=== PATIENT | female | born 1980 | race Caucasian/White ===

== ENCOUNTER 2016-12-21 06:56 | Day surgery (SDC) | payer OTHER ==
[2016-12-21] MEDS ORDERED: SILVER NITRATE APPLICATOR 1 APPL TP ONE (07:05)
[2016-12-21] MEDS ORDERED: LIDOCAINE 2% 5 ML SDV ONE (07:13)
[2016-12-21] MEDS ORDERED: MIDAZOLAM 2 MG/2 ML VIAL ONE (07:36)
[2016-12-21] MEDS ORDERED: PROPOFOL/EMULSION 500 MG/50 ML BOTTLE IV ONE (07:40)
[2016-12-21] MEDS ORDERED: fentaNYL 100 MCG/2 ML INJ ONE (07:40)
[2016-12-21] MEDS ORDERED: DEXAMETHASONE 4 MG/ML VIAL ONE (07:42)
[2016-12-21] MEDS ORDERED: LIDOCAINE 2% JELLY 5 ML TUBE ONE (07:42)
[2016-12-21] MEDS ORDERED: ONDANSETRON 4 MG/2 ML VIAL ONE (07:42)
[2016-12-21] MEDS ORDERED: LIDOCAINE 2% 100 MG/5 ML SYR ONE (07:42)
[2016-12-21] MEDS ORDERED: KETOROLAC 30 MG/1 ML SDV ONE (07:49)
[2016-12-21] MEDS ORDERED: PROPOFOL 200 MG/20 ML VIAL ONE (08:25)
--- NOTE | 2016-12-21 09:37 | GOP ---
[f rep st] OPERATIVE REPORT DATE OF OPERATION: 12/21/2016 SURGEON: Angeles Daily MD ANESTHESIA: Duran Davis MD. PREOPERATIVE DIAGNOSIS: Uterine polyps, infertility with premature ovarian failure. POSTOPERATIVE DIAGNOSIS: Uterine adhesion. PROCEDURE PERFORMED: Diagnostic hysteroscopy, polypectomy. FINDINGS: One small endocervical polyp, 1 larger polyp in the lower uterine segment on the left, and a large anterior/posterior pillar of dense scar tissue with in the uterine fundus occupying the middle third of the uterine cavity. SPECIMENS: Endometrial polyp. ESTIMATED BLOOD LOSS: Less than 10 mL. INDICATIONS: Patient is a 36 yo G0 who is planning to undergo assisted reproductive fertility services for infertility. She has a known history of uterine polyps and had a prior hysteroscopy and polypectomy in [place] in 2013. Prior to her fertility treatment a diagnostic hysteroscopy in her provider's office demonstrated uterine polyps. It was recommended she proceed with operative hysteroscopy for polyp removal. All risks and benefits discussed including pain, infection, bleeding, injury to uterus, failure to resolve condition, need for additional surgeries. DESCRIPTION OF PROCEDURE: Patient was brought to the operating room and a time- out was performed. She was prepped and draped in a normal sterile fashion after IV general was initiated. She was placed in dorsal lithotomy position with Robin stirrups. A final time-out was performed. The speculum was placed. The anterior lip of the cervix was grasped with a single-tooth tenaculum. The cervix was dilated to 17 Vietnamese. The 5 mm hysteroscope was introduced with the above findings. The Truclear polyp blade was introduced and the 2 polyps were removed. As noted above, there was a very dense pillar of scar tissue noted in the uterine fundus running in an anterior/posterior direction, occupying about a third of the cavity. This was not able to be removed with the polyp blade and the decision was made to abandon the procedure at this time. All instruments were removed. Hemostasis was noted. Counts were correct x2. The patient was awoken in good condition and she was transferred to the PACU. FLUID DEFICIT: 2060 mL normal saline, however, there was about 1 L of fluid noted to be on the floor. COMPLICATIONS: None. /[id number]/MODL MTDD
== END 2016-12-21 10:45 | disposition home or self-care (01) ==
LOC: FSGY 06:56
PROVIDERS: ATTEND Obstetrics & Gynecology
PROC: 0UB98ZX Excision of Uterus, Via Natural or Artificial Opening Endoscopic, Diagnostic (ICD-10-PCS; principal; 2016-12-21 09:00)
DX: N84.0 Polyp of corpus uteri (principal)
CPT/HCPCS: 58558; C1782; J1100; J1885; J2001; J2250; J2405; J2704; J3010

== ENCOUNTER → 2017-06-19 | Outpatient (CLI) | payer OTHER | LOC: FIMAGING 12:23 | PROVIDERS: ATTEND Obstetrics & Gynecology | DX: N84.0 Polyp of corpus uteri (principal) ==